=== PATIENT | female | born 1960 | race Caucasian/White ===

== ENCOUNTER 2020-08-13 05:15 | Inpatient (IN) | payer MEDICAID ==
[2020-08-13] MEDS ORDERED: Acetaminophen 500 MG Tab PO ONE (05:45)
[2020-08-13] MEDS ORDERED: Celecoxib 200 MG Cap PO ONE (05:45)
[2020-08-13] MEDS ORDERED: Scopolamine 1.5 MG Transdermal Patch TOP ONE (05:45)
[2020-08-13] MEDS ORDERED: Dextrose 5%-Lactated Ringers 1,000 ML IV SCH ×2 (06:00→11:15)
[2020-08-13] MEDS ORDERED: Pregabalin 50 MG Cap ONE (06:34)
[2020-08-13] MEDS: Pregabalin 100 MG Cap ONE ×2 (06:39→06:40)
[2020-08-13] MEDS ORDERED: cefOXitin 2 GM Vial ONE (06:54)
[2020-08-13] MEDS ORDERED: Pregabalin 100 MG Cap PO SCH (07:00)
[2020-08-13] MEDS ORDERED: fentaNYL 250 MCG/5 ML SDV ONE (07:08)
[2020-08-13] MEDS ORDERED: Rocuronium 50 MG/5 ML Vial ONE (07:09)
[2020-08-13] MEDS ORDERED: Neostigmine Methylsulfate 1 MG/ML 5 ML Syringe ONE (07:09)
[2020-08-13] MEDS ORDERED: Succinylcholine 200 MG/10 ML MDV ONE (07:09)
[2020-08-13] MEDS ORDERED: Dexamethasone 4 MG/ML SDV ONE (07:09)
[2020-08-13] MEDS ORDERED: Propofol 200 MG/20 ML SDV ONE (07:09)
[2020-08-13] MEDS ORDERED: Ondansetron 4 MG/2 ML SDV ONE (07:09)
[2020-08-13] MEDS ORDERED: Glycopyrrolate 0.2 MG/ML 5 ML MDV ONE (07:09)
[2020-08-13] MEDS ORDERED: Lactated Ringers 1,000 ML ONE (07:11)
[2020-08-13] MEDS ORDERED: cefOXitin 2 GM in Sodium Chloride 0.9% 50 ML IV ONE (07:15)
[2020-08-13] MEDS ORDERED: Ketamine 50 MG in Sodium Chloride 0.9% 49.5 ML IV SCH (07:30)
[2020-08-13] MEDS ORDERED: Ketamine 500 MG/5 ML MDV IV SCH (07:30)
[2020-08-13] MEDS ORDERED: Magnesium Sulfate 6.5 GM in Sodium Chloride 0.9% 250 ML IV ONE (08:00)
[2020-08-13] MEDS ORDERED: Ondansetron 4 MG/2 ML SDV IVPUSH ONE (09:28)
[2020-08-13] MEDS ORDERED: hydrOXYzine HCL 100 MG/2 ML SDV IM ONE (09:28)
[2020-08-13] MEDS ORDERED: fentaNYL 100 MCG/2 ML SDV IVPUSH ONE (09:32)
[2020-08-13] MEDS ORDERED: Cyclobenzaprine 10 MG Tab PO PRN (11:13)
[2020-08-13] MEDS: Lactated Ringers 1,000 ML IV SCH (11:14)
[2020-08-13] MEDS ORDERED: HYDROmorphone 1 MG/ML Syringe IV PRN (12:00)
[2020-08-13] MEDS ORDERED: Labetalol 20 MG/4 ML Syringe IVPUSH PRN (12:00)
[2020-08-13] MEDS ORDERED: Acetaminophen 500 MG Tab PO PRN (12:00)
[2020-08-13] MEDS ORDERED: Insulin Lispro 100 Unit/ML 3 ML KwikPen SUBCUT PRN (12:00)
[2020-08-13] MEDS ORDERED: Ondansetron 4 MG/2 ML SDV IVPUSH PRN (12:00)
[2020-08-13] MEDS ORDERED: HYDROmorphone 0.5 MG/0.5 ML Syringe IVPUSH PRN (12:00)
[2020-08-13] MEDS ORDERED: hydrOXYzine HCL 100 MG/2 ML SDV IM PRN (12:00)
[2020-08-13] MEDS ORDERED: diphenhydrAMINE 50 MG/ML SDV IVPUSH PRN (12:00)
[2020-08-13] MEDS ORDERED: Calcium Gluconate 10% 1 GM/10 ML SDV IVPUSH PRN (12:00)
[2020-08-13] MEDS ORDERED: Metoclopramide 10 MG/2 ML SDV IVPUSH PRN (12:00)
[2020-08-13] MEDS: Pantoprazole 40 MG Vial IVPUSH SCH (12:36)
[2020-08-13] MEDS: cefOXitin 2 GM in Sodium Chloride 0.9% 50 ML IV SCH ×3 (12:36→23:50)
[2020-08-13] MEDS ORDERED: MVI, Adult with Vitamin K 10 ML, Thiamine 200 MG, Zinc/Copper/Manganese/Selenium 1 ML i... IV SCH ×4 (16:00)
[2020-08-13] MEDS: Acetaminophen 500 MG Tab PO SCH ×2 (16:04→21:08)
[2020-08-13] MEDS: oxyCODONE 5 MG Tab PO PRN (17:37)
[2020-08-13] MEDS ORDERED: atorvaSTATin 10 MG Tab PO SCH (21:00)
[2020-08-13] MEDS ORDERED: Pregabalin 75 MG Cap PO SCH (21:00)
[2020-08-13] MEDS: Heparin Sodium 5,000 Units/ML Vial SUBCUT SCH (21:06)
[2020-08-13] MEDS: Pregabalin 75 MG Cap PO SCH (21:10)
[2020-08-14] MEDS: Lactated Ringers 1,000 ML IV SCH (04:43)
[2020-08-14] MEDS: cefOXitin 2 GM in Sodium Chloride 0.9% 50 ML IV SCH ×2 (05:30→11:51)
[2020-08-14] MEDS: oxyCODONE 5 MG Tab PO PRN ×2 (05:39→09:39)
[2020-08-14] MEDS: Acetaminophen 500 MG Tab PO SCH (06:21)
[2020-08-14] MEDS ORDERED: Ondansetron 4 MG Tab.DIS PO PRN (07:20)
[2020-08-14] MEDS ORDERED: Dextrose 5%-Lactated Ringers 1,000 ML IV SCH (07:30)
--- NOTE | 2020-08-14 08:54 | CR ---
[facility] HISTORY: Postbariatric surgery FINDINGS: Patient swallowed water-soluble contrast. Upright views of the abdomen show no evidence of extravasation or obstruction. There is a surgical drain in the left upper quadrant. IMPRESSION: Status post bariatric surgery No extravasation or obstruction seen
[2020-08-14] MEDS ORDERED: SCOPOLAMINE PATCH CHECK TOP SCH (09:00)
[2020-08-14] MEDS ORDERED: Lisinopril 20 MG Tab PO SCH (09:00)
[2020-08-14] MEDS ORDERED: Celecoxib 200 MG Cap PO SCH (09:00)
[2020-08-14] MEDS ORDERED: Hydrochlorothiazide 25 MG Tab PO SCH (09:00)
[2020-08-14] MEDS ORDERED: DULoxetine 30 MG Cap PO SCH (09:00)
[2020-08-14] MEDS: Heparin Sodium 5,000 Units/ML Vial SUBCUT SCH (09:39)
[2020-08-14] MEDS: Pregabalin 75 MG Cap PO SCH (09:43)
--- NOTE | 2020-08-14 11:21 | DISCH ---
ADMISSION DIAGNOSES: 1. Morbid obesity. 2. Chronic kidney disease stage 3. 3. Type 2 diabetes mellitus. 4. Chronic bilateral low back pain. 5. General anxiety disorder. DISCHARGE DIAGNOSES: 1. Laparoscopic Josefa-en-Y gastric bypass surgery. 2. Liver biopsy. 3. Repair of diaphragmatic hernia. 4. Excision of mediastinal lipoma. POSTOPERATIVE DIAGNOSES: 1. Morbid obesity. 2. Hepatomegaly. 3. Diaphragmatic hernia. 4. Mediastinal lipoma. Date of procedure 08/13/2020. Surgeon: Luis You MD. HISTORY: Cece is a 60-year-old female with longstanding history of morbid obesity and increasing comorbidities. After preoperative evaluation and discussion of possible risks and possible complications, she wished to proceed with surgical procedure. HOSPITAL COURSE: Cece had her surgery on 08/13/2020. Vital signs stable. Upper GI was normal. Oral intake 630, output 1650. She was up ambulating. Activity was good. She was taught how to use a diabetic glucometer and to check her blood sugars. She was able to be discharged to home without any complications. She received adequate dietary and diabetic education. PHYSICAL EXAMINATION: GENERAL: Cece is a 60-year-old female, alert and oriented. VITAL SIGNS: Height is 5 feet 3 inches. Weight is 313 pounds. BMI is 55. TPR 97.2, 77, and 16. Blood pressure 114/59. Oral intake 630, urine output 1650. ROB drain put out 60 mL of a light red drainage. HEENT: Negative. NECK: Supple. HEART: Regular rate and rhythm. LUNGS: Clear. ABDOMEN: Dressings dry and intact. Abdominal binder is on. EXTREMITIES: Without peripheral edema. DISPOSITION: Discharged to home. CONDITION: Stable and improving. FOLLOWUP APPOINTMENT: Fabiola Simpson PA-C, on 08/24/2020 at 10 a.m. MEDICATIONS: She is to take Celebrex 200 mg p.o. b.i.d., Zofran 4 mg ODT q.4 hours p.r.n. nausea, Tylenol 1000 mg p.o. every 8 hours, lisinopril 40 mg daily, hydrochlorothiazide 25 mg p.o. daily, Lipitor 10 mg p.o. bedtime, and Lyrica 150 mg p.o. b.i.d. She may discontinue Pepcid and omeprazole. DIET: Step 2 gastric bypass diet with no cereal for 2 weeks until 08/28/2020. ACTIVITY: No lifting greater than 10 pounds for 2 weeks. OTHER ACTIVITY: Walk 6 times daily inside your home. Driving: Do not drive for 1 week. Shower/bathing: May shower. Keep operative site clean and dry. Wear abdominal binder for 2 weeks and as tolerated. Notify provider if any fever, increased pain, swelling, redness, drainage, nausea, or vomiting. Special instructions: Use incentive spirometer 10 times every hour while awake for 1 week. Check blood sugars 4 times a day and record results. Call clinic on Monday with results of blood sugar. /[id number]
[2020-08-14] MEDS: Pantoprazole 40 MG Vial IVPUSH SCH (11:52)
[2020-08-15] MEDS ORDERED: Cyanocobalamin (Vitamin B12) 1,000 MCG/ML SDV IM ONE (09:00)
--- NOTE | 2020-08-23 14:56 | OR ---
DATE OF PROCEDURE: 08/13/2020 SURGEON: Luis You MD PREOPERATIVE DIAGNOSIS: Morbid obesity. POSTOPERATIVE DIAGNOSES: 1. Morbid obesity. 2. Marked hepatomegaly. 3. Paraesophageal diaphragmatic hernia. 4. Mediastinal lipoma. OPERATIVE PROCEDURES: Diagnostic laparoscopy with: 1. Laparoscopic Josefa-en-Y gastric bypass with long limb gastroenterostomy (67832). 2. Brodie-Cut needle liver biopsy (86135). 3. Repair of paraesophageal diaphragmatic hernia (73589). 4. Excision of mediastinal lipoma (91185). ANESTHESIA: General. STEMMER MACHINE: Fabiola Simpson PA-C INDICATIONS FOR PROCEDURE: This is a 60-year-old female presenting with longstanding morbid obesity and increasingly significant comorbidities. After preoperative evaluation and discussion, she wished to proceed with a gastric bypass procedure. Potential risks including bleeding, infection, leaks from various GI tract closures, problems with bowel obstruction over time as well as possibility of cardiopulmonary, septic, or hemorrhagic complications leading to were discussed, and the patient wishes to proceed. DETAILS OF PROCEDURE: The patient was taken to the operating room and after general endotracheal anesthesia was induced, placed in a lithotomy position and the abdomen prepped and draped. At 15 cm inferior and 5 cm left of the xiphoid process, a transverse incision was made and the peritoneal cavity entered under direct vision with an Optiview trocar, inflated to 15 mmHg pressure with CO2. Laparoscope was reinserted. No underlying trocar insertion site injuries were seen. Bilateral transversus abdominis plane blocks were then placed and 5 additional trocars were placed across the upper and mid abdomen. The liver was noted to be markedly enlarged and fatty infiltrated. Brodie-Cut needle biopsy obtained from left lobe of the liver. Minimal bleeding from the biopsy sites was controlled with electrocautery. At this point, the omentum was retracted superiorly and divided in the midline up to the level of the transverse colon. This allowed identification of the small bowel to the ligament of Treitz. Small bowel was then traced out 150 cm distal to that point, where it was divided with a JOHN stapler. Small bowel was then traced out additional 150 cm beyond that site, where a [id number] enteroenterostomy was accomplished with internal firing of the Endo-JOHN 60 mm stapler. Common opening was then closed transversely with same stapler and angles anastomosed. Mesenteric defect was approximated with some 0 Ethibond stitch along with fibrin sealant. The Josefa limb was then from the mesentery for a few centimeters, which allowed antecolic position of the Josefa limb up to the level of the gastroesophageal junction without tension. The liver was then retracted anteriorly. The patient was noted to have a moderate-sized paraesophageal diaphragmatic hernia containing some perigastric fat and gastric fundus, and a tongue of the omentum. The hernia was reduced and peritoneum overlying incised and reflected downward. An anterior repair of the diaphragmatic hernia was then accomplished with 0 Ethibond sutures reinforced with PTFE pledgets. During the course of the dissection of the diaphragmatic hernia, a mediastinal lipoma was encountered and this was excised to facilitate a more adequate crural closure. The gastrointestinal catheter which was present in the stomach was then inflated to 15 mL and pulled up snugly against the EG junction, gastric wall over the apex, balloon was then marked with electrocautery and balloon catheter deflated and pulled up into the esophagus. The lesser omental tissue adjacent to the gastric cardia was then incised allowing dissection behind the stomach at that level. Pouch formation was initiated with transverse firing of the JOHN stapler at the level of the cauterized peter in the gastric cardia. Pouch was then completed with additional firings of JOHN stapler up to and through the angle of His. Upon completion of the pouch, both staple lines were noted to be intact. The anvil of a 25 mm EEA stapler was attached to Gonzales sump type tube. The latter was brought down through the mouth, taken out through a small opening in the gastric pouch, allowing the anvil likewise to be pulled down to within the gastric pouch. The divided end of the Josefa limb was then opened and the main body of the EEA stapler passed several centimeters into the lumen of the small bowel, brought up the anvil, united with it, thus creating the gastrojejunostomy. Upon removal of the stapler, double donuts of mucosa were noted within it. Small bowel was closed off with a vascular staple line. Gastrojejunostomy was reinforced with some 3-0 Vicryl seromuscular stitch along with fibrin sealant. Leak test was accomplished with injection of 120 mL of air in the gastric pouch while it was submerged in a cefoxitin-containing saline solution. No leaks were identified. A single Avery-Rock drain was then placed through the left lateral trocar site and positioned adjacent to the gastrojejunostomy and from there up into the splenic fossa. The trocars were removed and the peritoneal cavity deflated. Incisions were closed with 4-0 Vicryl skin stitch. Drains affixed with 4-0 Vicryl stitch as well. The patient taken to the recovery room in satisfactory condition. Physician office assistant receptionist, Fabiola Simpson, played an essential role in assisting in this case helping to position the patient, retract structures as needed, as well as suturing and cutting sutures when indicated. Her presence improved patient's safety and decreased operative time. Luis You MD /[id number]
== END 2020-08-14 12:15 | disposition home or self-care (01) | DRG 621 ==
LOC: JP.SDS 05:15 → JP.MS 05:15 → EDSTATUS 07:15 → JP.MS 09:20
PROVIDERS: ADMIT Surgery; ATTEND Surgery
PROC: 0D164ZA Bypass Stomach to Jejunum, Percutaneous Endoscopic Approach (ICD-10-PCS; principal; 2020-08-13)
PROC: 0FB24ZX Excision of Left Lobe Liver, Percutaneous Endoscopic Approach, Diagnostic (ICD-10-PCS; 2020-08-13)
PROC: 0BQT4ZZ Repair Diaphragm, Percutaneous Endoscopic Approach (ICD-10-PCS; 2020-08-13)
PROC: 0JB63ZZ Excision of Chest Subcutaneous Tissue and Fascia, Percutaneous Approach (ICD-10-PCS; 2020-08-13)
DX: E66.01 Morbid (severe) obesity due to excess calories (principal); N18.30 Chronic kidney disease, stage 3 unspecified; E11.22 Type 2 diabetes mellitus with diabetic chronic kidney disease; G89.29 Other chronic pain; M54.5 Low back pain; F41.1 Generalized anxiety disorder; R16.0 Hepatomegaly, not elsewhere classified; K44.9 Diaphragmatic hernia without obstruction or gangrene; D17.4 Benign lipomatous neoplasm of intrathoracic organs; I12.9 Hypertensive chronic kidney disease with stage 1 through stage 4 chronic kidney disease, or unspecified chronic kidney disease; J35.1 Hypertrophy of tonsils; Z79.4 Long term (current) use of insulin; Z79.899 Other long term (current) drug therapy; Z91.048 Other nonmedicinal substance allergy status; Z68.43 Body mass index [BMI] 50.0-59.9, adult
CPT/HCPCS: 36415; 74240; 74240-26; 82962; 86850; 86900; 86901; 88304; 88307; 88313; 94762; A9270-GY; C9113; J0171; J0330; J0694; J1100; J1644; J1815; J2405; J2704; J2710; J2795; J3010; J3410; J3411; J3475; J3490; J7050; J7120; J7121

== ENCOUNTER 2020-08-26 05:33 | Day surgery (SDC) | payer MEDICAID ==
[~2020-08-26 05:33] MED LIST: Lactated Ringers 1,000 ML IV ONE
[2020-08-26] MEDS ORDERED: Cyanocobalamin (Vitamin B12) 1,000 MCG/ML SDV IM ONE (06:00)
[2020-08-26] MEDS ORDERED: MVI, Adult with Vitamin K 10 ML, Thiamine 200 MG, Zinc/Copper/Manganese/Selenium 1 ML i... IV ONE ×4 (07:00)
[2020-08-26] MEDS ORDERED: fentaNYL 100 MCG/2 ML SDV ONE (07:12)
[2020-08-26] MEDS ORDERED: Propofol 200 MG/20 ML SDV ONE (07:12)
[2020-08-26] MEDS ORDERED: Midazolam 1 MG/ML 2 ML SDV ONE (07:12)
[2020-08-26] MEDS ORDERED: Glycopyrrolate 0.2 MG/ML 2 ML SDV IVPUSH ONE (07:15)
[2020-08-26] MEDS ORDERED: Pantoprazole 40 MG Vial IVPUSH ONE (07:27)
[2020-08-26] MEDS ORDERED: Alum Hydrox/Mag Hydrox/Simeth 360 ML, Lidocaine 2% 60 ML PO SCH ×2 (08:30)
--- NOTE | 2020-08-31 17:33 | OR ---
DATE OF PROCEDURE: 08/26/2020 SURGEON: Luis You MD PREOPERATIVE DIAGNOSIS: Probable ingested foreign body obstructing gastrojejunostomy. POSTOPERATIVE DIAGNOSIS: Spontaneous passage of foreign body through gastrojejunostomy with inflamed but open gastrojejunostomy. OPERATIVE PROCEDURE: Upper GI endoscopy. ANESTHESIA: IV sedation. INDICATION FOR PROCEDURE: This is a 60-year-old female, status post laparoscopic Josefa-en-Y gastric bypass on 08/13/2020. She presents after eating and advancing her diet to include some cod which apparently became clogged. She is unable to drink water, especially over the last 36 hours, and presents now for an upper endoscopy with dilation and/or removal of foreign body. Potential risks including bleeding, perforation, possible aspiration of esophageal contents were gone over and the patient wishes to proceed. DETAILS OF PROCEDURE: The patient was taken to the operating room, placed in a left lateral decubitus position. IV sedation was administered, after which the upper GI endoscope was passed orally through the length of the esophagus and into the area of the gastrojejunostomy. There was no retained foreign body at this time, and the anastomosis was somewhat inflamed, covered with some fibrinous type material, but otherwise wide open, and no additional intervention was undertaken. The scope was then withdrawn and procedure was concluded. The patient will be instructed to stay on a step 1 diet for 2 days and then step 2 diet for another 5 days and then continue on with her Pepcid. We will give her some Protonix IV in the recovery room to decrease any acid production in the area of the gastric pouch, and otherwise as mentioned above, we will have continue the Pepcid. Should be following up with Fabiola Simpson as arranged. We will instruct her to continue some Zofran p.r.n. before meals and also send her home with ounces of Maalox to take p.r.n. prior to meals also if there are problems with discomfort or nausea. Luis You MD /[id number]
== END 2020-08-26 10:07 | disposition home or self-care (01) ==
LOC: JP.SDS 05:33
PROVIDERS: ATTEND Surgery
DX: K95.89 Other complications of other bariatric procedure (principal); K31.89 Other diseases of stomach and duodenum; I10 Essential (primary) hypertension; E11.9 Type 2 diabetes mellitus without complications; Z01.812 Encounter for preprocedural laboratory examination; Z20.822 Contact with and (suspected) exposure to COVID-19; Z98.84 Bariatric surgery status; E66.01 Morbid (severe) obesity due to excess calories; Z79.899 Other long term (current) drug therapy; Z68.43 Body mass index [BMI] 50.0-59.9, adult; Z91.048 Other nonmedicinal substance allergy status
CPT/HCPCS: 43235; 87635; A9270; C9113; J2250; J2704; J3010; J3411; J3420; J3490; J7120; U0002